=== PATIENT | female | born 1990 | race Caucasian/White ===

== ENCOUNTER 2018-01-14 20:28 | Inpatient (IN) | payer MEDICAID ==
[2018-01-14 21:13] VITALS: BMI 18.3
[2018-01-14] MEDS ORDERED: Lactated Ringer's 1,000 ML IV SCH (21:15)
--- NOTE | 2018-01-14 21:35 | OBADHP ---
Datetime: 01/14/2018 21:16 Admit Comment, IP Provider: 27 y/o female G1PO at 38.5wks gestation based on LMP presents for schedu led induction of labor due to IUGR. Pt denies ctx, vb, lof, dysuria, headache. +FM PNC: CFH, GBS+, IGUR, Growth us form 01/11 shows 3 wk lag, Anemia (Hg 10), Varicella IgM + OBHx: denies PMHX: denies SurgHx: denies NKDA Denies Smoking, alchol, drugs VSS General: Comfortable, no distress, AOx3 Cardio: RRR, no murmurs Pulm: CTABL Abdomen: Gravid, NT Extremities: No edema, good pulses, +excorations on LE BL FHR: 144, reactive, no decels Assesment: IUP at 38.5 wks for induciton of labor Plan: Admit to labor and delivery. Administer Cervidil 10mg vaginally. Monitor maternal vital sign s, Continuous monitoring. Monitor for signs of progression. Will adminsiter Penicillin 5mu xIM at the start of active labor and 2.5mu q 4. OB Hospitalist Addendum: Pt seen and examined by me. Agree w/ above. 27 yo G1 at 38+5 wks for in duction of labor for growth restriction. NST reactive. GBS positive. Will start Penicillin f or prophylaxis when labor starts. Cervidil placed at 9:30 pm. (ES) Lungs - PN: Normal Heart - PN: Normal Neurologic - PN: Normal General - PN: Normal Vital Signs Provider: Reviewed; Within Normal Limits IP Chief Complaint: Other IP Adm Impression: Term, intrauterine IP Admit Plan: Admit to unit; Initiate labor induction protocol
[2018-01-14 22:01] LABS: BASO # 0.1 K/uL (0.0-0.2); BASO % 0.6 % (0.0-2.0); EOS # 0.1 K/uL (0.0-0.7); EOS % 1.5 % (0.0-4.0); HEMOGLOBIN 10.8 g/dL (12.0-16.0); LYMPH % 21.5 % (20.0-40.0); MEAN CELL VOLUME 74.1 fl (81.0-99.0); MEAN CORPUSCULAR HEMOGLOBIN 23.9 pg (27.0-31.0); MEAN CORPUSCULAR HGB CONC 32.3 g/dL (33.0-37.0); MEAN PLATELET VOLUME 8.5 fl (7.2-11.7); MONO # 0.8 K/uL (0.0-0.8); MONO % 8.6 % (0.0-10.0); NEUT # 6.4 K/uL (1.8-7.0); NEUT % 67.8 % (50.0-75.0); NRBC % 0.1 % (0.0-0.0); RBC 4.53 Mil/uL (3.80-5.20); RED CELL DISTRIBUTION WIDTH 14.7 % (11.5-14.5); WHITE BLOOD COUNT 9.5 K/uL (4.8-10.8)
--- NOTE | 2018-01-15 11:31 | OBPN ---
Datetime: 01/15/2018 11:27 IP Progress Impression: Normal progression of labor IP Informed Consent Obtain: Vaginal Delivery IP Procedures: Sterile Vag Exam IP Progress Plan: Continue present management Contraction Comments Provider: q 5 mins FHR - Baseline A Provider: 150 IP Progress Note Comment: Patient evaluated, FT/50/-3 THS=284 mod matteo, no accels, no decels TOCO = ctxning q 5 mins A/P 1. Patient to have continued induction with Cytotec 50 mcg PO q 4 hours 2. CEFm and TOCO 3. Re-evaluate as needed Vital Signs Provider: Reviewed; Within Normal Limits NICHD Variability Prov Fetus A: Moderate 6-25bpm Dilatation, Provider: FT Effacement, Provider: 50 Station, Provider: -3 Datetime: 01/14/2018 21:16 Membranes, Provider: Intact NICHD Accel Fetus A IP Provider: [id number] FHR Category Provider Fetus A: Category I NICHD Decel Fetus A IP Provider: None
[2018-01-15] MEDS: Lactated Ringer's 1,000 ML IV SCH (13:15)
[2018-01-16] MEDS ORDERED: Oxytocin 30 UNITS in Sodium Chloride 0.9% 500 ML IV SCH ×2 (09:15→22:45)
[2018-01-16] MEDS: Lactated Ringer's 1,000 ML IV SCH (11:15)
--- NOTE | 2018-01-16 14:48 | OBPN ---
Datetime: 01/16/2018 12:43 IP Progress Impression: Reassuring heart rate IP Procedures: Sterile Vag Exam IP Progress Plan: Continue present management; Augmentation FHR - Baseline A Provider: 150 IP Progress Note Comment: Pt evaluated, no acute distress. 2cm, 40, -2 FHR: 150, +accels Augmentation with pitocin as per protocol - currently 2mU/hr. Plan: Continue with augmentation, continue maternal and monitoring. Reassess as needed. OB hospitalist on-call. Earlier, I spoke with pt and her relative who was with her at the time. S he requested a female if at all possible for jew reasons. After long and detailed discussion, we spoke about my role as a health care provider. She understood. We would let the nurses and femal e providers exam as much as possible. her questoins were answered and she seemed satisfied. PGY1 Dr Aparicio and Addison Huynh are present on L_D NICHD Accel Fetus A IP Provider: [id number] FHR Category Provider Fetus A: Category I NICHD Variability Prov Fetus A: Moderate 6-25bpm Dilatation, Provider: 2 Effacement, Provider: 40 Station, Provider: -2
[2018-01-16] MEDS ORDERED: ceFAZolin 2 GM in Sodium Chloride 0.9% 100 ML IVPB ONE (19:08)
[2018-01-16] MEDS ORDERED: ceFAZolin IV 2 gm in Dextrose 2 GM/50 ML BAG IVPB ONE (19:08)
[2018-01-16] MEDS ORDERED: Propofol 10 mg/ml Inj (20 ML) ONE (19:21)
[2018-01-16] MEDS ORDERED: Midazolam 2 MG/2 ML VIAL ONE (19:21)
[2018-01-16] MEDS ORDERED: Succinylcholine 200 mg/10 ml Inj IV ONE (19:21)
--- NOTE | 2018-01-16 20:29 | OBPN ---
Datetime: 01/16/2018 19:21 IP Progress Impression: Non-reassuring heart rate IP Informed Consent Obtain: Section Delivery; Risks, Benefits and Alternatives Discussed IP Progress Plan: Deliver- Section FHR - Baseline A Provider: 150 IP Progress Note Comment: at 39 weeks GA here for IOL Nonreassuring FHT : Multiple decelerations Informed consent for emergency obtained Patient taken to OR for stat c/s Nico PGY2 OB Hospitalist on-call...from 1850pm, she was noted to have decelerations remote form delivery. Fahad douglas explained to pt. Informed consent obtained. Prep for OR Vital Signs Provider: Reviewed; Within Normal Limits NICHD Accel Fetus A IP Provider: [id number] FHR Category Provider Fetus A: Category II NICHD Variability Prov Fetus A: Marked >25bpm NICHD Decel Fetus A IP Provider: Prolonged
[2018-01-16] MEDS ORDERED: Lactated Ringer's 1,000 ML IV SCH (20:30)
[2018-01-16] MEDS ORDERED: Oxycodone/Acetaminophen 5/325 mg Tab PO PRN ×2 (22:38)
[2018-01-17] MEDS ORDERED: Oxycodone/Acetaminophen 5/325 mg Tab PO PRN ×2 (01:11)
[2018-01-17] MEDS ORDERED: ceFAZolin 1 GM in Sodium Chloride 0.9% 100 ML IVPB SCH (03:00)
[2018-01-17] MEDS: ceFAZolin IV 1 gm in Dextrose 1 GM/50 ML BAG IVPB SCH ×2 (03:16→08:42)
[2018-01-17 07:15] LABS: HEMOGLOBIN 10.8 g/dL (12.0-16.0); MEAN CELL VOLUME 74.5 fl (81.0-99.0); MEAN CORPUSCULAR HEMOGLOBIN 23.9 pg (27.0-31.0); MEAN CORPUSCULAR HGB CONC 32.1 g/dL (33.0-37.0); RBC 4.53 Mil/uL (3.80-5.20); RED CELL DISTRIBUTION WIDTH 14.6 % (11.5-14.5)
--- NOTE | 2018-01-17 07:41 | OP ---
PROCEDURE DATE: 01/16/2018 PREOPERATIVE DIAGNOSIS: Prolonged deceleration remote from delivery and intrauterine at 39 weeks' gestation. POSTOPERATIVE DIAGNOSIS: Prolonged deceleration remote from delivery, intrauterine at 39 weeks' gestation. PROCEDURE: Primary low transverse section via Pfannenstiel incision. SURGEON: Popeye Gordillo DO PIPE MANUFACTURE SUPERVISOR: Champ Reyes MD and Dr. Thao, PGY-1. TYPE OF ANESTHESIA: General endotracheal. ANESTHESIA ADMINISTERED BY: Bhaskar Turner MD ESTIMATED BLOOD LOSS: 800 mL. OPERATIVE FINDINGS: A live infant delivered from a cephalic presentation. Clear amniotic fluid was noted. Apgars score of 6 and 9 given at 1 and 5 minutes respectively. Placenta was delivered intact manually Ovaries and tubes appeared to be within normal limits. She was brought to the recovery room in stable condition after reversal of general anesthesia. DESCRIPTION OF PROCEDURE: Ramiro was brought to the operating room, placed in supine position. Compression boots were placed on both lower extremities. She had a Engle catheter already in place. She was then draped and prepped in the usual sterile manner. IV antibiotics was given. She was then successfully induced under general anesthesia by Dr. Turner. A low transverse incision was made using a scalpel. An incision was then taken down to the underlying fascia using a second scalpel. This fascia was nicked in the midline and incision extended bilaterally using curved Horner scissors. Inferior aspect of the fascia was grasped using two Peterson clamps, tented up and the rectus muscle was both bluntly and sharply dissected using curved Horner scissors. Same was done with the superior aspect of the fascia superiorly in the midline and rectus muscle was bluntly, peritoneum was identified and this was entered bluntly superiorly and incision was then extended superiorly and inferiorly with direct visualization of the bladder and intestines using Metzenbaum scissors. Bladder blade was then inserted. A bladder flap was created by incising peritoneum on the uterus and then extending bilaterally using Metzenbaum scissors. The bladder flap that was created digitally and then bladder blade was then inserted behind the bladder flap. A low transverse incision was made using a scalpel. Upon entering the uterus, the incision was then extended digitally. Infant's head was delivered as atraumatically as possible, and was bulb suctioned nasopharyngeally. The remainder of the was then delivered as atraumatically as possible. The was crying and then handed to the Mailroom Clerk in attendance after cord was clamped and cut. Cord bloods and cord pH were obtained. Placenta was delivered intact manually. Uterus was then exteriorized and cleared of debris and clots. IV Pitocin given. Uterus was closed using 0 Vicryl suture in interlocking fashion. Second layer of the uterus was closed using 0 Vicryl suture, imbricating the first layer. Good hemostasis is assured. Posterior cul-de-sac was noted to be clear of debris and clots. Ovaries and tubes appeared to be within normal limits grossly. Uterus was placed back into peritoneal cavity. Irrigation was performed. Lower uterine segment is noted to have good hemostasis. An 0 Vicryl suture was used to approximate the peritoneum in running fashion. Irrigation was performed. Rectus muscle was noted to have good hemostasis, was approximated with 2-0 Vicryl suture x2. A 0 Vicryl suture was used approximate the fascia layer in a running fashion. Hemostasis was assured using electrocautery. Subcuticular layer was then approximately using 2-0 plain suture x3 and then a 3-0 Vicryl suture was used to approximately the skin in running fashion. Dermabond, Steri-Strips and a pressure bandage were applied. All equipments, sponges and needles accounted for. Popeye Gordillo DO
[2018-01-17] MEDS: Multivitamin With Minerals Tab PO SCH (08:43)
--- NOTE | 2018-01-17 08:46 | OBPPN ---
Datetime: 01/17/2018 05:48 PP Pain Prov: Within normal limits PP Nausea Prov: Denies PP Flatus Prov: No PP BM Prov: No PP Breasts Prov: Not Done PP Heart Prov: Normal PP Lungs Prov: Normal PP Abdomen/Uterus Prov: Normal PP Lochia Prov: Normal PP Vulva/Perineum Prov: Not Done PP CVA Tenderness Prov: Not Done PP Extremities Prov: Normal PP C/S Incision Prov: Normal PP Progress Prov: Normal PP Impression Prov: Normal progression PP Plan Prov: Continue present management PP Progress Note Prov: POD 1 S: 27 y/o female s/p c section on 01/16/18 for unreassuring FHT seen and evaluated post op day 1. No overnight events. Pt reports mild abdominal pain, but well controlled with pain meds. Ambu lating without dizziness/ lightheadedness/palpatations. without difficulty. Lochia is s imilar to menses volume. No BM. Denies fever/chills, diarrhea, nausea/vomiting, chest pain, dyspnea, and dizziness. O: VS: stable GEN: NAD Cardio: S1S2, no murmurs Lungs: clear breath sounds b/l, no wheezing Abdomen: BS+, appropriate tenderness to palpation. Dressing in tact, dry. Uterus is firm and at th e level of the umbilicus. Appropriate tenderness EXT: No edema, calves nontender NEURO/PSYCH: AAOx3, no grossly focal deficits, preserved affect and mood. Assessment/Plan: 27 y/o female s/p c section on 01/16/18 doing well on POD1. Pt remains a febrile, tolerating pain with medication. F/U Post-op H/H. Pt has no anemia symptoms. OOB with cautio mario alberto Engle removed this morning. Dressing to be removed this evening (7:30pm) Anticipating discharge . SCDs for DVT prophylaxis, encouraged ambulating Ancef 1gm IVP q8 x 2 doses (last dose at 10:00am today) Percocet 5/325mg q4 and Motrin 600mg po q6 for pain as per pain scale [place]ot 17.2mg po QHS Encourage Discussed with OB Attending Gifty Thao, PGY1 The patient was seen with the resident I agree with the note IP PP Procedures: None Vital Signs Provider PP: Reviewed; Within Normal Limits
[2018-01-17] MEDS ORDERED: Multivitamin With Minerals Tab PO SCH (09:00)
--- NOTE | 2018-01-17 11:12 | OBPPN ---
Datetime: 01/17/2018 11:08 PP Progress Note Prov: OB Hospitalist on-call last night. Discussion with patient about continuing antibitoics for 24h. Disclosure about incident in OR. S he understands and her questions answered. Allison Villatoro, senior nurser manager school came fro the dis cussion as well.
[2018-01-17] MEDS ORDERED: Simethicone 80 mg Chewtab PO ONE (20:36)
[2018-01-18] MEDS ORDERED: Benzocaine/Menthol (Cepacol) Lozenge PO ONE (07:00)
[2018-01-18 07:29] LABS: BASO # 0.1 K/uL (0.0-0.2); BASO % 0.4 % (0.0-2.0); EOS % 0.1 % (0.0-4.0); HEMOGLOBIN 10.4 g/dL (12.0-16.0); LYMPH # 1.9 K/uL (1.0-4.3); MEAN CELL VOLUME 73.3 fl (81.0-99.0); MEAN CORPUSCULAR HEMOGLOBIN 24.2 pg (27.0-31.0); MEAN PLATELET VOLUME 8.2 fl (7.2-11.7); MONO # 1.1 K/uL (0.0-0.8); MONO % 5.7 % (0.0-10.0); NEUT # 15.6 K/uL (1.8-7.0); NEUT % 83.8 % (50.0-75.0); RBC 4.3 Mil/uL (3.80-5.20); WHITE BLOOD COUNT 18.7 K/uL (4.8-10.8)
[2018-01-18] MEDS: Multivitamin With Minerals Tab PO SCH (09:49)
[2018-01-19] MEDS: Multivitamin With Minerals Tab PO SCH (08:51)
--- NOTE | 2018-01-19 10:28 | OBPPN ---
Datetime: 01/19/2018 06:51 PP Pain Prov: Within normal limits PP Nausea Prov: Denies PP Flatus Prov: Yes PP BM Prov: Yes PP Impression Prov: Normal progression PP Plan Prov: Continue present management; Discharge PP Progress Note Prov: POD 3 S: 27 y/o female s/p c section on 01/16/18 for nonreassuring FHT, seen and evaluated post o p day 3. No overnight events. Cough improved. Pt reports mild abdominal pain, but well controlled w ith pain meds.. Ambulating without dizziness/ lightheadedness/palpitations. with some d ifficulty producing milk. Has not been seen by agronomy specialist yet. Lochia is similar to menses volume. Had BM this morning. Denies fever/chills, diarrhea, nausea/vomiting, chest pain, dyspnea, and dizziness. Tolerating regular diet. O: VS: stable GEN: NAD Cardio: S1S2, no murmurs Lungs: clear breath sounds b/l, no wheezing Abdomen: BS+, appropriate tenderness to palpation. Incision closed w/o bleeding, discharge, or clara thema. Uterus is firm and at the level of the umbilicus. Appropriate tenderness EXT: No edema, calves nontender NEURO/PSYCH: AAOx3, no grossly focal deficits, preserved affect and mood. Post op H/H: 10.8/33.7 WBC 20 Assessment/Plan: 27 y/o female s/p c section on 01/16/18 doing well on POD3. Pt remains a febrile, tolerating pain with medication. OOB with caution. Cough drop ordered. Will continue to osmin tor. Incentive spirometry encouraged. Contraception discussed today. Anticipating discharge today. SCDs for DVT prophylaxis, encouraged ambulating Percocet 5/325mg q4 and Motrin 600mg po q6 for pain as per pain scale Senakot 17.2mg po QHS Encourage Discussed with OB Attending Gifty Thao, PGY1 Discharge Note Addendum by Dr. Bolivar: Patient evaluated independently and I agree with the above. Vital Signs Provider PP: Reviewed; Within Normal Limits Datetime: 01/18/2018 06:05 PP Breasts Prov: Not Done PP Heart Prov: Normal PP Lungs Prov: Normal PP Abdomen/Uterus Prov: Normal PP Lochia Prov: Normal PP Vulva/Perineum Prov: Not Done PP CVA Tenderness Prov: Not Done PP Extremities Prov: Normal PP C/S Incision Prov: Normal PP Progress Prov: Normal IP PP Procedures: None
--- NOTE | 2018-01-19 10:31 | OBDCSUM ---
Datetime: 01/19/2018 06:53 Discharged to, Provider: Home Follow up at, Provider: [facility] Instr Activity: Normal activity; May be up to bathroom; May be up for meals; May Shower Disch Instr Diet: Regular Discharge Instructions, Provider: Routine instructions given Discharge Diagnosis, Provider: Term Delivered Follow up in weeks, Provider: 1-2 weeks Disch Referrals: None Contraception discussed, Prov: Yes Disch Activity Restrictions: No exercising; No lifting; Minimize walking; Minimize stair-climbing; N o sexual activity; Nothing in vagina - [place], tampons, douche Discharge Comment, Provider: EGA: 38.5weeks Diagnosis: 27 y/o female s/p c section on 01/16/18 risk factors: GBS +, IGUR : Female, 2460g, 6/ Post Summary: No complications during post period. Incision intact, Lochia less than menses. Post H/H: 10.8/33.7 Discharge Instructions: 1. Encourage 2. PNV 1 tab po daily 3. Ibuprofen 600mg 1 tab prn for mild-mod pain 4. Percocet 5/325 1 tab po prn for severe pain 6. ER precautions: If excessive bleeding or fever without relief from medication, go to ED 7. F/U 1-2 weeks Contraception after Delivery: Undecided
[2018-01-19 19:00] VITALS: BP 100/57; PULSE 74; RESP 20; TEMP 97.8; O2SAT 98
== END 2018-01-19 14:54 | disposition home or self-care (01) | DRG 371 ==
LOC: H.EROB2 20:28 → H.L&D 21:12 → H.ERHOLD 21:39 → H.EROB2 21:40 → H.L&D 01-16 08:41 → H.OB/GYN 01-16 22:57
PROVIDERS: ADMIT Obstetrics & Gynecology; ATTEND Obstetrics & Gynecology
PROC: 4A1HXCZ Monitoring of Products of Conception, Cardiac Rate, External Approach (ICD-10-PCS; 2018-01-14)
PROC: 10D00Z1 Extraction of Products of Conception, Low, Open Approach (ICD-10-PCS; principal; 2018-01-16)
DX: O76 Abnormality in fetal heart rate and rhythm complicating labor and delivery (principal); O36.5930 Maternal care for other known or suspected poor fetal growth, third trimester, not applicable or unspecified; Z37.0 Single live birth; O99.824 Streptococcus B carrier state complicating childbirth; Z3A.39 39 weeks gestation of pregnancy